=== PATIENT | male | born 2000 | race Hispanic/Latino ===

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

== ENCOUNTER 2018-02-19 18:24 | Emergency (ER) | payer MEDICAID, OTHER ==
[2018-02-19 18:48] VITALS: RESP 18
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
[2018-02-19 20:50] VITALS: BP 112/78; PULSE 78; TEMP 98; O2SAT 100
--- NOTE | 2018-02-20 08:59 | RAD ---
Date of service: 02/19/2018 PROCEDURE: Cervical Spine Radiographs. HISTORY: Pain. COMPARISON: None. FINDINGS: BONES: Straightening of the normal lordosis. No fracture. Dens Intact. DISC SPACES: Normal. SOFT TISSUES: Normal. No prevertebral soft tissue swelling. OTHER FINDINGS: None. IMPRESSION: Straightening of the normal lordosis may be related to positioning/spasm. No acute fracture.
== END 2018-02-19 20:52 | disposition home or self-care (01) ==
LOC: H.ER 18:24
DX: S16.1XXA Strain of muscle, fascia and tendon at neck level, initial encounter (principal); Y92.410 Unspecified street and highway as the place of occurrence of the external cause